=== PATIENT | male | born 1925 | race Caucasian/White ===

== ENCOUNTER → 2016-08-22 | Outpatient (CLI) | payer OTHER ==
[~2016-08-22] MED LIST: ALLO100T PO; ALLO1TAB51 PO; AMLO10TA4 PO; ATOR-24 PO; CALC0.5C17 PO; CLC100 PO; FERR1TAB23 PO; FERR325T5 PO; FLM4 PO; FLUT0.15 NAE; FRS/40 PO; FURO40TA3 PO; IPRASOL4 INH; LPT40 PO; METO-217 PO; METO50TA7 PO; MOML PO; MRLP17 PO; MULT-190 PO; NRV/10 PO; NUTR-1048 PO; NXM/40 PO; PRLSR20 PO; RANI150T2 PO; RXC5 PO; SENN-12 PO; SODI650T8 PO; SODIENE PR; TAMS0.4C38 PO; TPRSR/50 PO
[2016-08-22 09:40] LABS: HEMATOCRIT 40.3 % (42-52); MEAN CORPUSCULAR HEMOGLOBIN 33.1 pg (25-34); MEAN CORPUSCULAR HGB CONC 32.8 g/dl (32-36); MEAN PLATELET VOLUME 10.7 fL (7.4-10.4); PLATELET COUNT 201 K/uL (130-400); RED BLOOD COUNT 3.99 M/uL (4.7-6.1); WHITE BLOOD COUNT 6.89 K/uL (4.8-10.8)
[2016-08-22 10:02] LABS: BLOOD UREA NITROGEN 55 mg/dl (7-18); BUN/CREATININE RATIO 17.1 (10-20); CALCIUM 9.1 mg/dl (8.5-10.1); CARBON DIOXIDE 26 mmol/L (21-32); CHLORIDE 106 mmol/L (98-107); GLUCOSE 122 mg/dl (70-99); PHOSPHORUS 3.7 mg/dl (2.5-4.9); POTASSIUM 4.7 mmol/L (3.5-5.1); SODIUM 143 mmol/L (136-145)
[2016-08-22 10:16] LABS: ESTIMATED AVERAGE GLUCOSE 160 mg/dl; HA1C FLAG Normal (Normal)
== END ==
LOC: C.LAB1850 07:10
PROVIDERS: ATTEND Internal Medicine Nephrology
DX: N18.9 Chronic kidney disease, unspecified (principal); E11.9 Type 2 diabetes mellitus without complications

== ENCOUNTER 2016-11-03 18:17 | Emergency (ER) | payer OTHER ==
[~2016-11-03] VITALS: Ht 162.6 cm; Wt 80.9 kg
[~2016-11-03 18:17] MED LIST changes: -ALLO100T PO; -CALC0.5C17 PO; -FERR1TAB23 PO; -FLUT0.15 NAE; -FURO40TA3 PO; -LPT40 PO; -NRV/10 PO; -RANI150T2 PO; -TAMS0.4C38 PO; -TPRSR/50 PO
[2016-11-03 18:52] VITALS: TEMP 36.6; Ht 162.6 cm; Wt 80.9 kg
[2016-11-03] MEDS ORDERED: ACETAMINOPHEN 500 MG TAB PO STA (19:11)
[2016-11-03] MEDS ORDERED: ACETAMINOPHEN 325 MG TAB ONE (19:31)
--- NOTE | 2016-11-03 20:18 | DIAGNOSTIC IMAGING REPORT ---
RIGHT HIP 2 VIEWS CLINICAL HISTORY: Fall with right hip pain. FINDINGS: AP and frog-leg views of the right hip are compared to study dated 08/23/2014. The skeletal structures are osteopenic. There is no radiographic evidence of fracture in the right hip or the visualized right hemipelvis. A right hip arthroplasty is in near-anatomic alignment. No periprosthetic lucency is identified. Heterotopic bone formation is present around the proximal aspect of the arthroplasty. Mild overlying soft tissue contusion is suspected. There is advanced atherosclerotic calcification of the right femoral artery. IMPRESSION: 1. No fracture is identified in the right hip or the imaged right hemipelvis. 2. A right hip arthroplasty is in near-anatomic alignment. 3. Question mild soft tissue contusion in the upper thigh. Electronically signed by: Tito Rios M.D. 11/03/2016 8:17 PM Dictated Date/Time: 11/03/2016 8:15 PM
--- NOTE | 2016-11-03 20:20 | DIAGNOSTIC IMAGING REPORT ---
RIGHT FEMUR 3 VIEWS CLINICAL HISTORY: Fall with right leg pain. FINDINGS: AP, frog-leg, and lateral views of the right femur are correlated with right hip radiographs dated 08/23/2014. The skeletal structures are osteopenic. A right hip arthroplasty is in near-anatomic alignment. No right femoral fracture is seen. The imaged right hemipelvis appears intact. Heterotopic bone formation is noted around the proximal end of the arthroplasty. The right knee joint is grossly maintained noting arthritic change. An intramedullary nail is partially imaged in the proximal tibia. There is advanced atherosclerotic calcification of the right femoral artery. Mild soft tissue contusion is suggested in the upper thigh. IMPRESSION: There is no radiographic evidence of right femoral fracture. See above. Electronically signed by: Tito Rios M.D. 11/03/2016 8:18 PM Dictated Date/Time: 11/03/2016 8:17 PM
--- NOTE | 2016-11-03 20:23 | DIAGNOSTIC IMAGING REPORT ---
RIGHT KNEE 3 VIEWS CLINICAL HISTORY: Fall with right leg pain. FINDINGS: AP, crosstable lateral, and sunrise views of the right knee are compared to study dated 06/26/2014. The skeletal structures are osteopenic. No acute fracture is identified. An intramedullary nail is again noted in the proximal tibia. 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 There is moderate degenerative narrowing at the patellofemoral articulation. Mild narrowing is seen in the medial and lateral compartments. No large joint effusion is identified. There is mild prepatellar soft tissue swelling. Surgical clips are seen posterior to the knee. There is advanced atherosclerotic calcification of the popliteal artery. IMPRESSION: 1. Prepatellar soft tissue swelling with no radiographic evidence of fracture. 2. Osteopenia with degenerative and postoperative changes as above. Electronically signed by: Tito Rios M.D. 11/03/2016 8:22 PM Dictated Date/Time: 11/03/2016 8:20 PM
[2016-11-03] MEDS ORDERED: CALC0.5C PO (20:48)
[2016-11-03] MEDS ORDERED: TAMS0.4C38 PO (20:48)
[2016-11-03] MEDS ORDERED: TPRSR/50 PO (20:48)
[2016-11-03] MEDS ORDERED: NXM/40 PO (20:48)
[2016-11-03] MEDS ORDERED: FERR1TAB23 PO (20:48)
[2016-11-03] MEDS ORDERED: RANI150T2 PO (20:48)
[2016-11-03] MEDS ORDERED: FURO40TA3 PO (20:48)
[2016-11-03] MEDS ORDERED: NRV/10 PO (20:48)
[2016-11-03] MEDS ORDERED: LPT40 PO (20:48)
[2016-11-03] MEDS ORDERED: FLUT0.15 NAE (20:48)
[2016-11-03] MEDS ORDERED: ALLO100T PO (20:50)
--- NOTE | 2016-11-03 20:55 | EMERGENCY ROOM VISIT NOTE ---
History First contact with patient: 18:58 Chief Complaint: LEG PAIN,LEG INJURY Stated Complaint: PAIN IN UPPER RIGHT LEG- FALL History of Present Illness The patient is a 89 year old male who presents to the Emergency Room with complaints of right thigh pain after a fall earlier this afternoon. Patient states he lost his footing while walking in the yard, fell to his right side striking his right thigh. He was able to get himself up off the ground and has been ambulatory on the leg fall. He states the pain is exacerbated by standing and walking, resolves with sitting down and rest. He describes the pain as aching, 7/10, constant. He did not take any medications for the pain. He denies hitting his head, loss of consciousness, chest pain, shortness of breath , abdominal pain, or any other injuries related to the fall. He does not take any blood thinners. Review of Systems GENERAL: Denies fevers, chills, malaise, fatigue, unintentional weight changes. HEENT: Denies dizziness, visual problems, hearing loss, tinnitus. Denies difficulty swallowing or oral lesions. PULMONARY: Denies cough, shortness of breath, sputum production or hemoptysis. CARDIOVASCULAR: Denies chest pain, palpitations, dyspnea on exertion, orthopnea or peripheral edema. GASTROINTESTINAL: Denies diarrhea, constipation, nausea, vomiting, or abdominal pain. GENITOURINARY: Denies dysuria, hematuria, frequency, urgency or nocturia. NEUROLOGIC: Denies history of epilepsy, CVA, TIA or chronic headaches. MUSCULOSKELETAL: Denies history of joint tenderness/swelling. SKIN: Denies rashes or lesions. Past Medical/Surgical History Medical Problems: (1) Acute renal failure superimposed on stage 4 chronic kidney disease (2) Aortic stenosis (3) Atrial fibrillation (4) Diastolic CHF, chronic (5) Heart disease (6) History of open heart surgery (7) HTN (hypertension) (8) Kidney disease Family History No pertinent family history Social History Smoking Status: Never Smoker Marital Status: Housing Status: lives with family Occupation Status: retired Current/Historical Medications Scheduled Allopurinol (Zyloprim), 100 MG PO DAILY Amlodipine Besylate (Amlodipine Besylate), 10 MG PO DAILY Atorvastatin (Atorvastatin Calcium), 40 MG PO DAILY Calcitriol (Calcitriol), 0.5 MG PO 3XWK Docusate Sodium (Docusate Sodium), 100 MG PO BID Esomeprazole Magnesium (Nexium), 40 MG PO DAILY Ferrous Sulfate (Iron), 325 MG PO DAILY Fluticasone Propionate (Nasal) (Flonase Allergy Relief), 1 SPRAY SAHIL DAILY Furosemide (Lasix), 40 MG PO BID Metoprolol Succinate (Metoprolol Succinate ER), 50 MG PO DAILY Ocuvite Preservision (Ocuvite Preservision), 1 TAB PO DAILY Ranitidine HCl (Ranitidine HCl), 150 MG PO DAILY Sodium Bicarbonate (Sodium Bicarbonate), 650 MG PO BID Tamsulosin Hcl (Flomax), 0.4 MG PO DAILY Allergies Coded Allergies: Penicillins (Unverified Allergy, Unknown, UNKNOWN, 04/04/16) Propoxyphene (Unverified Allergy, Unknown, UNKNOWN, 04/04/16) Aspirin (Verified Adverse Reaction, Severe, GI BLEED, 04/04/16) Physical Exam Vital Signs Date Time Temp Pulse Resp B/P Pulse Ox O2 Delivery O2 Flow Rate FiO2 11/03/16 18:52 36.6 58 18 106/54 93 Room Air Physical Exam CONSTITUTIONAL: No acute distress. Well appearing and well nourished. Alert and oriented X 4 with normal affect. HEENT: Normocephalic, atraumatic. Pupils equal, round and reactive to light, EOMI. TMs normal. Pharynx normal. NECK: Supple, full active range of motion without discomfort. RESPIRATORY: Clear to auscultation bilaterally with no wheezing, crackles, rhonchi or stridor. Equal expansion bilaterally. CARDIOVASCULAR: Regular rate and rhythm with no murmurs, rubs or gallops. Normal peripheral perfusion. No edema. GASTROINTESTINAL: Soft, nontender, nondistended. Bowel sounds present in all quadrants. MUSCULOSKELETAL: Full range of motion of all joints without discomfort. Mild tender to palpation of the right anterior and lateral mid thigh, no ecchymosis or swelling noted. INTEGUMENTARY: No rash or other significant dermatologic conditions noted. NEUROLOGIC: Cranial nerves II-XII grossly intact. No focal neurologic deficits noted. Medical Decision & Procedures ER Provider Diagnostic Interpretation: RIGHT FEMUR 3 VIEWS CLINICAL HISTORY: Fall with right leg pain. FINDINGS: AP, frog-leg, and lateral views of the right femur are correlated with right hip radiographs dated 08/23/2014. The skeletal structures are osteopenic. A right hip arthroplasty is in near-anatomic alignment. No right femoral fracture is seen. The imaged right hemipelvis appears intact. Heterotopic bone formation is noted around the proximal end of the arthroplasty. The right knee joint is grossly maintained noting arthritic change. An intramedullary nail is partially imaged in the proximal tibia. There is advanced atherosclerotic calcification of the right femoral artery. Mild soft tissue contusion is suggested in the upper thigh. IMPRESSION: There is no radiographic evidence of right femoral fracture. See above. ----- RIGHT KNEE 3 VIEWS CLINICAL HISTORY: Fall with right leg pain. FINDINGS: AP, crosstable lateral, and sunrise views of the right knee are compared to study dated 06/26/2014. The skeletal structures are osteopenic. No acute fracture is identified. An intramedullary nail is again noted in the proximal tibia. 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 There is moderate degenerative narrowing at the patellofemoral articulation. Mild narrowing is seen in the medial and lateral compartments. No large joint effusion is identified. There is mild prepatellar soft tissue swelling. Surgical clips are seen posterior to the knee. There is advanced atherosclerotic calcification of the popliteal artery. IMPRESSION: 1. Prepatellar soft tissue swelling with no radiographic evidence of fracture. 2. Osteopenia with degenerative and postoperative changes as above. ----- RIGHT HIP 2 VIEWS CLINICAL HISTORY: Fall with right hip pain. FINDINGS: AP and frog-leg views of the right hip are compared to study dated 08/23/2014. The skeletal structures are osteopenic. There is no radiographic evidence of fracture in the right hip or the visualized right hemipelvis. A right hip arthroplasty is in near-anatomic alignment. No periprosthetic lucency is identified. Heterotopic bone formation is present around the proximal aspect of the arthroplasty. Mild overlying soft tissue contusion is suspected. There is advanced atherosclerotic calcification of the right femoral artery. IMPRESSION: 1. No fracture is identified in the right hip or the imaged right hemipelvis. 2. A right hip arthroplasty is in near-anatomic alignment. 3. Question mild soft tissue contusion in the upper thigh. Medications Administered Medications (Trade) Dose Ordered Sig/[place] Route Start Time Stop Time Status Last Admin Dose Admin Acetaminophen (Tylenol Tab) 650 mg NOW STAT PO 11/03/16 19:11 11/03/16 19:16 DC 11/03/16 19:11 650 MG Medical Decision Patient complaining of right thigh pain after a fall earlier today. No obvious ecchymosis or swelling of the extremity, there is mild tenderness to palpation of the mid anterior and lateral right thigh. Full range of motion in the right hip and right knee joints, lower extremities are of equal length and normal alignment. X-rays of the hip, femur, knee done which are negative for acute bony abnormality and do favor a thigh contusion. Patient's pain improved after Tylenol. Patient and his daughters updated on all results and plan for discharge home with close PCP follow-up, patient verbalized understanding. Impression Primary Impression: Contusion of right thigh, initial encounter Additional Impression: Fall Departure Information Dispostion Home / Self-Care Condition GOOD Referrals Nomi Tejada M.D. (PCP) Patient Instructions ED Contusion Lower Ext, My [facility] Additional Instructions Follow-up with your PCP in the next 1-2 days. You may take Tylenol or ibuprofen as needed for pain. Apply ice packs to the area of pain for the next 48 hours to help with swelling. After that you may apply heat to the area for discomfort. Please return to the ER for any worsening symptoms, including severe pain, if you are unable to walk because of pain, swelling in your leg, numbness or tingling in your leg, or any other concerns. Problem Qualifiers Additional Impression: Fall Encounter type: initial encounter Qualified Codes: W19.XXXA - Unspecified fall, initial encounter
[2016-11-03 21:31] VITALS: BP 136/65; PULSE 61; O2SAT 93
== END 2016-11-03 21:30 | disposition home or self-care (01) ==
LOC: C.EDB 18:18 → C.EDD 21:30
DX: S70.11XA Contusion of right thigh, initial encounter (principal); W19.XXXA Unspecified fall, initial encounter; I12.9 Hypertensive chronic kidney disease with stage 1 through stage 4 chronic kidney disease, or unspecified chronic kidney disease; N18.4 Chronic kidney disease, stage 4 (severe); I48.91 Unspecified atrial fibrillation; I50.32 Chronic diastolic (congestive) heart failure; I35.0 Nonrheumatic aortic (valve) stenosis; Z79.899 Other long term (current) drug therapy

== ENCOUNTER → 2016-11-13 | Outpatient (CLI) | payer OTHER ==
[~2016-11-13] MED LIST changes: +ALLO100T PO; -ALLO1TAB51 PO; -AMLO10TA4 PO; -ATOR-24 PO; +CALC0.5C PO; +FERR1TAB23 PO; -FERR325T5 PO; -FLM4 PO; +FLUT0.15 NAE; -FRS/40 PO; +FURO40TA3 PO; -IPRASOL4 INH; +LPT40 PO; -METO-217 PO; -METO50TA7 PO; -MOML PO; -MRLP17 PO; +NRV/10 PO; -NUTR-1048 PO; -PRLSR20 PO; +RANI150T2 PO; -RXC5 PO; -SENN-12 PO; -SODIENE PR; +TAMS0.4C38 PO; +TPRSR/50 PO
[2016-11-13 09:29] LABS: HEMATOCRIT 37.9 % (42-52); MEAN CELL VOLUME 101.1 fL (80-100); MEAN CORPUSCULAR HEMOGLOBIN 33.3 pg (25-34); PLATELET COUNT 177 K/uL (130-400); RED BLOOD COUNT 3.75 M/uL (4.7-6.1); WHITE BLOOD COUNT 8.36 K/uL (4.8-10.8)
[2016-11-13 09:42] LABS: CALCIUM 9.2 mg/dl (8.5-10.1)
[2016-11-13 09:45] LABS: BLOOD UREA NITROGEN 66 mg/dl (7-18); CARBON DIOXIDE 26 mmol/L (21-32); CHLORIDE 103 mmol/L (98-107); GLUCOSE 129 mg/dl (70-99); PHOSPHORUS 3.5 mg/dl (2.5-4.9); POTASSIUM 4.2 mmol/L (3.5-5.1); SODIUM 139 mmol/L (136-145)
== END | disposition home or self-care (01) ==
LOC: C.LAB1850 06:59
PROVIDERS: ATTEND Internal Medicine Nephrology
DX: N18.9 Chronic kidney disease, unspecified (principal)

== ENCOUNTER → 2016-12-03 | Outpatient (CLI) | payer OTHER ==
--- NOTE | 2016-12-03 18:15 | ECHOCARDIOGRAM REPORT ---
*NOTICE TO RECEIVING [employer] This information is strictly Confidential and protected under [place] law. [place] law prohibits you from making any further disclosure of this information unless further disclosure is expressly permitted by the written consent of the person to whom it pertains or is authorized by law. A general authorization for the release of medical or other information is not sufficient for this purpose. Hospital accepts no responsibility if the information is made available to any other person, INCLUDING THE PATIENT. Interpretation Summary * Name: CHRIS ROTHMAN Study Date: 12/03/2016 12:33 PM BP: 146/54 mmHg * Patient Location: [facility] HR: 50 * : 1925 (M/d/yyyy) Gender: Male Height: 65 in * Age: 89 yrs Ethnicity: [place] Weight: 174 lb * Ordering Physician: Nomi Tejada MD * Performed By: Greta Gomez * * Reason For Study: Aortic Stenosis * BSA: 1.9 m2 * Normal biventricular systolic function. * Moderate concentric left ventricular hypertrophy. * Left ventricular diastolic dysfunction. * Mild biatrial dilatation. * Severe aortic stenosis. * Trace mitral and tricuspid regurgitation. * Mild mitral stenosis. * -- Conclusions -- * There is severe calcific aortic valve stenosis. Procedure Details * A complete two-dimensional transthoracic echocardiogram was performed (2D, M-mode, Doppler and color flow Doppler). * The study was technically difficult. * There were technical limitations due to patient's poor positioning. Patient stated that he broke his hip and could not roll on his side. Left Ventricle * The left ventricle is normal in size. * There is moderate concentric left ventricular hypertrophy. * Ejection Fraction = 50-55%. * A full diastolic examination was done with clinical findings of Class I diastolic dysfunction. * Left ventricular systolic function is low normal. * No regional wall motion abnormalities noted. Right Ventricle * The right ventricle is normal in size and function. Atria * The left atrium is mildly dilated. * The right atrium is mildly dilated. Mitral Valve * There is mild mitral annular calcification. * There is mild mitral stenosis. * There is trace mitral regurgitation. Tricuspid Valve * The tricuspid valve is not well visualized. * There is no tricuspid stenosis. * There is trace tricuspid regurgitation. * Right ventricular systolic pressure is normal. Aortic Valve * The aortic valve is not well visualized. * Aortic valve area was calculated at 0.78 cm\S\2 using the continuity equation. * Mean gradient 21.7 mm Hg. Dimensionless index 0.21. * There is severe calcific aortic valve stenosis. * There is no significant aortic regurgitation. Pulmonic Valve * The pulmonic valve is not well visualized. * The pulmonary valve is inadequately visualized, but the Doppler data is adequate for interpretation. * There is no pulmonic valvular stenosis. * There is no pulmonic valvular regurgitation. Great Vessels * The aortic root is normal size. Pericardium/Pleural * There is no pericardial effusion. Great Vessels * Normal inferior vena cava diameter and respiratory variation suggests normal central venous pressure. MMode 2D Measurements and Calculations IVSd 1.8 cm IVSs 2.0 cm LVIDd 5.5 cm LVIDs 4.0 cm LVPWd 1.8 cm LVPWs 1.2 cm IVS/LVPW 1.0 FS 27.9 % EDV(Teich) 147.2 ml ESV(Teich) 68.6 ml EF(Teich) 53.4 % EDV(cubed) 166.0 ml ESV(cubed) 62.3 ml EF(cubed) 62.4 % % IVS thick 10.8 % % LVPW thick -31.24 % LV mass(C)d 476.6 grams LV mass(C)dI 255.6 grams/m\S\2 LV mass(C)s 252.3 grams LV mass(C)sI 135.3 grams/m\S\2 SV(Teich) 78.6 ml SI(Teich) 42.2 ml/m\S\2 SV(cubed) 103.7 ml SI(cubed) 55.6 ml/m\S\2 Ao root diam 3.4 cm Ao root area 9.2 cm\S\2 ACS 1.0 cm LA dimension 4.6 cm asc Aorta Diam 2.9 cm LA/Ao 1.4 LVOT diam 2.1 cm LVOT area 3.6 cm\S\2 LVAd ap4 38.2 cm\S\2 LVLd ap4 9.5 cm EDV(MOD-sp4) 127.8 ml EDV(sp4-el) 130.2 ml LVAs ap4 24.1 cm\S\2 LVLs ap4 8.2 cm ESV(MOD-sp4) 58.9 ml ESV(sp4-el) 60.2 ml EF(MOD-sp4) 53.9 % EF(sp4-el) 53.8 % LVAd ap2 42.3 cm\S\2 LVLd ap2 9.6 cm EDV(MOD-sp2) 157.8 ml EDV(sp2-el) 158.3 ml LVAs ap2 25.0 cm\S\2 LVLs ap2 7.4 cm ESV(MOD-sp2) 73.7 ml ESV(sp2-el) 71.4 ml EF(MOD-sp2) 53.3 % EF(sp2-el) 54.9 % LVLd %diff 0.53 % EDV(MOD-bp) 142.3 ml LVLs %diff -10.27 % ESV(MOD-bp) 69.5 ml EF(MOD-bp) 51.1 % SV(MOD-sp4) 68.9 ml SI(MOD-sp4) 37.0 ml/m\S\2 SV(MOD-sp2) 84.1 ml SI(MOD-sp2) 45.1 ml/m\S\2 SV(MOD-bp) 72.7 ml SI(MOD-bp) 39.0 ml/m\S\2 SV(sp4-el) 70.0 ml SI(sp4-el) 37.5 ml/m\S\2 SV(sp2-el) 86.9 ml SI(sp2-el) 46.6 ml/m\S\2 Doppler Measurements and Calculations MV E max jacquie 58.8 cm/sec MV A max jacquie 94.9 cm/sec MV E/A 0.62 MV P1/2t max jacquie 63.8 cm/sec MV P1/2t 173.8 msec MVA(P1/2t) 1.3 cm\S\2 MV dec slope 107.6 cm/sec\S\2 MV dec time 0.54 sec Ao V2 max 346.0 cm/sec Ao max PG 47.9 mmHg Ao max PG (full) 45.6 mmHg Ao V2 mean 213.4 cm/sec Ao mean PG 21.7 mmHg Ao V2 VTI 80.0 cm JULIANNA(V,A) 0.78 cm\S\2 JULIANNA(V,D) 0.78 cm\S\2 AI max jacquie 430.2 cm/sec AI max PG 74.0 mmHg AI dec slope 142.4 cm/sec\S\2 AI P1/2t 884.7 msec LV V1 max PG 2.2 mmHg LV V1 max 74.8 cm/sec SV(Ao) 733.3 ml SI(Ao) 393.3 ml/m\S\2 PA V2 max 70.6 cm/sec PA max PG 2.0 mmHg TR max jacquie 254.1 cm/sec
--- NOTE | 2016-12-09 12:40 | CODING QUERY MEDICAL NECESSITY ---
SUPPORTING DIAGNOSIS NEEDED Dr. Tejada, A supporting diagnosis is required for the test/procedure performed on this patient in order for us to be reimbursed by the patient's insurance. Please provide a supporting diagnosis for the following test/procedure listed below next to the test name along with your signature. *If there is no additional diagnosis for this patient that would support the following test/procedure please document that below next to the test/procedure. Test(s)/Procedure(s) that require a supporting diagnosis: * ([id number]) PERFLUTREN LIPID MICRO, 2ML DIAGNOSIS: DATE OF SERVICE: 12/03/16 Provider Signature: Date: Thank you Gabino Aguirre Health Information Management Once completed, please kindly fax back to [phone] For questions please call [phone]
== END | disposition home or self-care (01) ==
LOC: C.CPL 11:57
DX: I35.9 Nonrheumatic aortic valve disorder, unspecified (principal); E08.22 Diabetes mellitus due to underlying condition with diabetic chronic kidney disease; E78.5 Hyperlipidemia, unspecified; I25.10 Atherosclerotic heart disease of native coronary artery without angina pectoris; N18.9 Chronic kidney disease, unspecified